=== PATIENT | female | born 1990 | race Hispanic/Latino ===

== ENCOUNTER 2021-01-14 08:14 | Emergency (ER) | payer OTHER ==
[~2021-01-14] VITALS: Ht 170.2 cm; Wt 75.0 kg
[2021-01-14] MEDS ORDERED: MULTTAB20 PO (08:29)
[2021-01-14] MEDS ORDERED: ACET325C5 PO (08:29)
[2021-01-14] MEDS: ONDANSETRON 4MG/2ML VIAL IV ONE (08:45)
[2021-01-14] MEDS: ACETAMINOPHEN 325 MG TAB PO ONE (09:05)
[2021-01-14] MEDS: NS 1,000 ML IV ONE (09:05)
[2021-01-14 09:20] LABS: BASO % 0.2 % (0.0-1.0); HEMATOCRIT 35.7 % (36.0-47.0); HEMOGLOBIN 12.2 g/dl (12.0-15.5); LYMPH # 0.9 10^3/uL (1.5-5.0); LYMPH % 8.3 % (24.0-44.0); MEAN CORPUSCULAR HEMOGLOBIN 27.1 pg (27.0-33.0); MEAN CORPUSCULAR HGB CONC 34.2 g/dl (32.0-36.5); MEAN CORPUSCULAR VOLUME 79.2 fl (80.0-96.0); MONO # 0.4 10^3/uL (0.0-0.8); NEUTROPHILS # 9.6 10^3/uL (1.5-8.5); NEUTROPHILS % 87.1 % (36.0-66.0); PLATELET COUNT, AUTOMATED 197 10^3/uL (150-450); RED BLOOD COUNT 4.51 10^6/uL (4.00-5.40)
[2021-01-14 09:43] LABS: ALBUMIN 3.6 GM/DL (3.2-5.2); ALT/SGPT 14 U/L (12-78); AMYLASE 43 U/L (25-115); BILIRUBIN,DIRECT < 0.1 MG/DL (0.0-0.2); BILIRUBIN,TOTAL 0.4 MG/DL (0.2-1.0); BLOOD UREA NITROGEN 9 MG/DL (7-18); CALCIUM LEVEL 9.1 MG/DL (8.5-10.1); CARBON DIOXIDE LEVEL 21 MEQ/L (21-32); CHLORIDE LEVEL 105 MEQ/L (98-107); CREATININE FOR GFR 0.99 MG/DL (0.55-1.30); GLOMERULAR FILTRATION RATE > 60.0 (>60); GLUCOSE, FASTING 115 MG/DL (70-100); LIPASE 85 U/L (73-393); POTASSIUM SERUM 3.7 MEQ/L (3.5-5.1); SODIUM LEVEL 135 MEQ/L (136-145)
--- NOTE | 2021-01-14 09:59 | REP ---
INDICATION: ruq, right flank pain 16 weeks gestation COMPARISON: None. TECHNIQUE: Real time em scale ultrasound examination using curved array transducer. Color Doppler evaluation of the renal vasculature. FINDINGS: Liver is normal in contour, size, and echogenicity without focal hepatic lesions identified. Pancreas is incompletely evaluated due to interposed bowel gas. The gallbladder demonstrates multiple small gallstones without obvious gallbladder wall thickening or pericholecystic fluid. Common bile duct is dilated to 7 mm. Right kidney and visualized right ureter demonstrate moderate hydroureteronephrosis with normal ureteral jet identified in the bladder. No ascites in the visualized right upper quadrant. noted ( heart rate equals 156 BPM). IMPRESSION: 1. Cholelithiasis with common bile duct upper limits of normal at 7 mm. Correlation is required as early acute cholecystitis and choledocholith cannot definitively be excluded. 2. Presumed induced right hydroureteronephrosis. <Electronically signed by Pepito Wynne > 01/14/21 0956
[2021-01-14 11:50] VITALS: BP 97/63
== END 2021-01-14 11:56 | disposition home or self-care (01) ==
LOC: M ED 08:14
DX: O99.612 Diseases of the digestive system complicating pregnancy, second trimester (principal); K80.70 Calculus of gallbladder and bile duct without cholecystitis without obstruction; Z3A.16 16 weeks gestation of pregnancy

== ENCOUNTER 2021-06-14 04:16 | Inpatient (IN) | payer OTHER ==
[2021-06-14] VITALS (19 sets, daily range): BP systolic 114–161; BP diastolic 55–94
[~2021-06-14] VITALS: Ht 170.2 cm; Wt 90.4 kg
[~2021-06-14 04:16] MED LIST: ACET325C5 PO; MULTTAB20 PO
[2021-06-14] MEDS ORDERED: LACTATED RINGER'S 1000 ML IV STA (06:39)
[2021-06-14] MEDS ORDERED: LR 1,000 ML IV SCH (06:40)
[2021-06-14] MEDS ORDERED: OXYTOCIN DRIP 30 UNITS in IV 1 EA IV PRN ×4 (06:40)
[2021-06-14] MEDS ORDERED: LIDOCAINE 1% MDV 20ML VIAL INFIL PRN (06:40)
[2021-06-14] MEDS ORDERED: METHYLERGONOVINE MALEATE 0.2 MG/ML VIAL (J2210) IM PRN (06:40)
--- NOTE | 2021-06-14 07:03 | HPEPDOC ---
Obstetrical History & Physical General Date of Admission Jun 14, 2021 at 06:41 History of Present Illness Presented to L&D triage with complaints of contractions since 0130 this am. Also with some spotting. Initial SVE at 0450 was 5/75/-2 at 0450, however with ctx every 8 min. Pt lives 30 min away so decision made to keep in triage and re- assess after 1-2hrs. Pt continued to contract with increasing frequency and intensity. Pt breathing through contractions. Good movement. No LOF. Chief Complaint: Contractions, term Dating Final EDC: Jun 26, 2021 Final EDC for Daily Update: Jun 26, 2021 Final EDC by: LMP LMP: Sep 19, 2020 Antepartum Course Diagnos(e)s 1. Anemia of 2. Gallstones 3. Asthma 4. Overweight, excessive wt gain Height (inches): 67 Pre- weight (lbs.): 164 Admission Weight (lbs.): 196 Change in Weight (lbs.): 32 Past Medical History Past Obstetrical History : Past Obstetrical History: Multigravida (2018 37wks 7#3oz. 2010 SAB with D&C 9wks) Past Medical History Medical History Asthma Hx abnormal PAP 2008 Gallstones Surgical History: Tonsilectomy, [place] teeth, Other (D&C) Family History Family History MGM: mitral valve syndrome, ovarian CA PGM: DM PGF: Esophageal CA Social History Marital Status: Family situation: Spouse/partner home Psychosocial History: No pertinent psych hx * Smoker: non-smoker Alcohol: Denies Drugs: denies Abuse Violence Screening Have you been hit/kicked/slapp: No Have you been sexually assault: No Imunizations Tdap status: current Allergies Coded Allergies: No Known Allergies (Unverified , 01/14/21) Medications Scheduled No122/Iron/Folic Acid ( Multi Tablet) 1 Each Tablet, 1 TAB PO DAILY Miscellaneous Medications Acetaminophen (Tylenol) 325 Mg Capsule, 325 MG PO Physical Examination Physical Examination Exam: General: Well-appearing, in no acute distress. Uncomfortable with contractions. PSYCH: Well groomed. Appropriate affect, normal mood. Conversed easily. Neuro: Oriented to time, place, and person. RESP: Lungs clear to auscultation bilaterally without wheezes, rales or rhonchi. Unlabored breathing. CV: Normal RRR, no murmur, c/w normal . No edema to bilateral upper and lower extremities. Negative calf tenderness. ABD: Gravid. Soft, non-tender. BS normal x4 quad. Uterus non-tender. MSK: Normal mvmt all extremities. Steady gait. Luna from a seated position without assistance. Genitalia: External Genitalia showed no abnormalities, without lesions; No vaginal discharge was observed. No unusual odors. Obstetrical: Clinical Pelvimetry: Pelvis adequate, untested. [proven to 7#3oz] FHR: 130 rate, moderate variability, accelerations present, no decelerations. Contractions every 4-5 min. VTX by Tim EFW: 3200gm by Tim SVE: , anterior/soft at 0640. Corporate Development Officer present for exam: L&D RN Vital Signs/I&O Vital Signs Date Time Temp Pulse Resp B/P (MAP) Pulse Ox O2 Delivery O2 Flow Rate FiO2 06/14/21 04:33 97.7 76 16 131/83 (99) Laboratory Data 24H LABS Laboratory Tests 2 06/14/21 05:30: CBC/BMP Pertinent Laboratoy Data Blood Type: O+ RBC Antibody Screen: Negative HIV: Negative Hepatitis B: Negative Rapid Plasma Reagin: Nonreactive Rubella: Immune Varicella: Immune Chlamydia/Gonorrhea: Negative Group B Streptococcus: Negative Quad Screen Test: Negative Cystic Fibrosis: Negative Glucose Tolerance Test: 93 Anatomy Ultrasound Ultrasound Date: Mar 13, 2021 Placenta Location: Posterior Normal Anatomy: Yes Estimated Weight (grams): 327 Assessment/Plan Assessment 30yo at 38+2 wks gestation presents to L&D for contractions and labor at term O positive/GBS negative/RI/ VSS Benign physical exam FHR Cat 1 tracing VTX by PAXTON DumontW 3200gm SVE: Plan PLAN: Admit, labs, IV, consent completed Address pain needs as the arise, patient unsure about epidural. Considering unmedicated again. May do hydrotherapy if she desires. May do intermittent EFM Expectant management at this time. Anticipate Consult physician service as needed Labor and Delivery Counseling Reviewed with patient the following with the patient in regards to vaginal delivery (Deliver infant through the vaginal canal): The purpose of the procedure is to deliver a baby. There may be maternal risks involved with vaginal delivery to include but not limited to: -Use of the medications to induce or augment labor with the risks of uterine rupture, infection, heart rate abnormalities, hemorrhage, and/or need for emergency delivery. -Artificial rupture of the amniotic sac with the risk of cord prolapse -Internal monitors with the associate risks of infection or fever -Infection, which is fever during the labor process -IV pain management, anesthesia as indicated and associated risks with those medications -Vaginal lacerations and repair, episiotomy and repair when needed -Injury to the baby or mother at the time of delivery, -Maternal organ damage, maternal or -Prolonged hospitalized -Possible painful intercourse, chronic pelvic pain In addition to these maternal risks, there may be other possible risks involved in this procedure including, but not limited to: bleeding with the possible need for blood transfusion. Risks of blood transfusion can include but are not ho ited to: possible transfusion reaction, virus transmission. Patient consents to blood transfusion if necessary. The likelihood of a successful outcome for this procedure is: Good Reviewed with patient the generally recognized and accepted practical alter natives to this procedure and the accompanying risks are: -Possible emergent Section with its risk of damage to internal organs and necessary repairs, laceration to the baby and necessary repairs -Possible operative vaginal delivery to include forceps or vacuum assist, resulting in: maternal tissue damage, maternal urinary or bowel incontinence, baby bruising, hematoma, scalp swelling, scalp laceration, skull fracture, facial paralysis and its repair Reviewed with patient the practice of medicine is not an exact science and that no guarantees can be made to the patient concerning the results of this procedure, nor guarantees to the effect this procedure will have on underlying medical issues. Reviewed with patient that during the course of labor, it may be necessary or appropriate to perform additional procedure(s) which were unforeseen or not known to be needed at the time of admission. Ms. Egan appears to understand these risks and elects to proceed with admission today. NUSRAT MAJANO CNM Jun 14, 2021 07:03
[2021-06-14 07:04] LABS: HEMATOCRIT 32.2 % (36.0-47.0); HEMOGLOBIN 9.9 g/dl (12.0-15.5); MEAN CORPUSCULAR HEMOGLOBIN 23.6 pg (27.0-33.0); MEAN CORPUSCULAR HGB CONC 30.7 g/dl (32.0-36.5); MEAN CORPUSCULAR VOLUME 76.8 fl (80.0-96.0); PLATELET COUNT, AUTOMATED 152 10^3/uL (150-450); RED BLOOD COUNT 4.19 10^6/uL (4.00-5.40); WHITE BLOOD COUNT 6.6 10^3/uL (4.0-10.0)
[2021-06-14] MEDS ORDERED: FENTANYL 2MCG/ML ROPIVACAINE 0.2% IN 0.9% NACL 100ML IVBAG As Ordered ONE (07:20)
[2021-06-14] MEDS ORDERED: EPIDURAL/PCA KEYS XX PRN (08:25)
[2021-06-14] MEDS ORDERED: diphenhydrAMINE 50MG/ML VIAL (J1200) IV PRN (08:25)
[2021-06-14] MEDS ORDERED: ONDANSETRON 4MG/2ML VIAL IV PRN (08:25)
[2021-06-14] MEDS ORDERED: FENTANYL/ROPIVACAINE/NACL BAG 100 ML EPIDURAL SCH (08:25)
[2021-06-14] MEDS ORDERED: ePHEDrine SULFATE 25 MG/5 ML(5MG/ML) SYRINGE IV PRN (08:25)
[2021-06-14] MEDS ORDERED: EPIDURAL COMMENT XX SCH (08:25)
[2021-06-14] MEDS ORDERED: LACTATED RINGER'S 1000 ML IV PRN (08:25)
[2021-06-14] MEDS ORDERED: NALOXONE INJ 0.4MG/1ML VIAL (J2310 PER 1MG) IV PRN (08:25)
[2021-06-14] MEDS ORDERED: REFRIGERATOR IV KEYS XX PRN (08:25)
[2021-06-14] MEDS ORDERED: IBUPROFEN 600MG TAB PO PRN (08:30)
[2021-06-14] MEDS ORDERED: DOCUSATE SODIUM 100MG CAPSULE PO PRN (08:30)
[2021-06-14] MEDS ORDERED: IBUPROFEN 800 MG TAB PO PRN (08:30)
[2021-06-14] MEDS ORDERED: ACETAMINOPHEN TAB 650MG DOSE (2X325MG) PO PRN (08:30)
--- NOTE | 2021-06-14 09:18 | DNPDOC ---
[facility] Delivery Note Delivery Note Date of Delivery: 14 Jun 2021 @ 0840 hours Pre-Procedure Diagnosis: 1. 30 year old G3 P 1 at 38+2 weeks gestation 2. O positive 3. Anemia of 4. Gallstones 5. Asthma 6. Overweight, excessive wt gain Post-Procedure Diagnosis: 1. Normal spontaneous vaginal delivery, term up to 40 weeks gestation 2. Nuchal cord complicating delivery, without compression Procedure: Spontaneous vaginal delivery Delivery Provider: MAJ Fanny Duarte CNM Anesthesia: Epidural Estimated Blood Loss: 200 ml Findings: Delivered viable female weighing 3150gm (6#15oz), Score 8/9. Complications: None Delivery Summary: Patient is a 30 year old 3 now para 2 who was admitted to labor and delivery for labor. She progressed to C/C/+3 without need for augmentation. Reassuring FHR tracing throughout pushing. Good directed pushing efforts delivered infant OA with shoulders delivering transverse. Nuchal cord noted, delivered through cord. Infant to maternal abdomen for drying, stimulation and assessment by nursing staff. Cord clamped x2 and cut by FOB following cessation of pulse. Cord blood obtained for typing due to maternal blood type. Placenta delivered with gentle cord traction, in Román mechanism, appears complete and intact with 3VC. [place] placenta. Fundus firm with minimal bleeding. Inspection revealed small introitus abraision, hemostatic and approximated. No sutures needed. Sponge, needle, instrument count correct following delivery. Vaginal sweep confirmed nothing foreign remaining in vagina. Patient and stable and bonding in skin to skin when I left. Desires to breast feed and use Nexplanon for control. I delivered the , completed the repair, and completed the documentation personally. -ELIE Polk ADINA M. CNM Jun 14, 2021 09:18
[2021-06-14] MEDS ORDERED: OXYTOCIN 30 UNITS IN 0.9% NaCl 500ML IV BAG (J2590) As Ordered ONE (09:33)
[2021-06-14] MEDS: PRENATAL VITAMINS CHEWABLE TABLET PO SCH (09:34)
[2021-06-14] MEDS: ACETAMINOPHEN 500 MG TAB PO PRN (17:41)
[2021-06-15] MEDS: ACETAMINOPHEN 500 MG TAB PO PRN (05:07)
--- NOTE | 2021-06-15 05:24 | IPNPDOC ---
Progress Note Date of Service: Jun 15, 2021 Day#: 1 Progress Note Ms. Egan is a 30yo PPD1 s/p , 3150gm (6#15oz), Score 8/9. She has been ambulating, voiding spontaneously without issue and tolerating regular diet. Breast feeding without issue. Reports lochia is less than a normal period. Patient is ambulating well. Reports some cramping with . Denies any pain. Voiding and passing flatus without difficulty. APC 1. Anemia of 2. Gallstones 3. Asthma 4. Overweight, excessive wt gain OBJECTIVE: VITAL SIGNS: Within normal limits, afebrile. Alert and oriented times three. No increased wob. Non-tachy. Abdomen: Fundus firm at U-2. Soft, NTTP. [Minimal] lochia per pt ASSESSMENT: Ms. Egan is a 30yo PPD1 s/p , 3150gm (6#15oz), Score 8/9. Vitals within normal limits, afebrile, hemodynamically stable with no evidence of infection. PLAN: 1. Discharge to home today. 2. Tylenol and Motrin for pain. 3. Encourage breast feeding and ambulation. 4. Desires nexplanon for contraception. Reported that she was told she had to wait until 6 weeks . Explained that she can get it as soon as she should like as it does not affect or VTE risk and if she would like it sooner she can call the clinic to schedule. 5. Routine PP visit in 6 weeks in clinic. 6. Discussed return precautions at length and activity limitations (pelvic rest). VS, I&O, 24H, [place] Vital Signs/I&O Vital Signs Date Time Temp Pulse Resp B/P (MAP) Pulse Ox O2 Delivery O2 Flow Rate FiO2 06/14/21 18:05 98.5 73 18 116/69 (85) 97 Room Air I&O- Last 24 Hours up to 6 AM 06/15/21 06:00 Intake Total 2371 ml Output Total 200 ml Balance 2171 ml Laboratory Data 24H LABS Laboratory Tests 2 06/14/21 05:30: Nucleated Red Blood Cells % (auto) 0.0 06/14/21 06:51: Serology Scanned Report Hepatitis B Testing CBC/BMP Laboratory Tests 06/14/21 05:30 KAYLENE GONSALES DO Jun 15, 2021 05:24
--- NOTE | 2021-06-15 05:25 | OBDS ---
[facility] Obstetrical Discharge Sum. A/P, Post Course List any complications Ms. Egan is a 30yo who had an uncomplicated vaginal delivery, 3150gm (6#15oz), Score 8/9. She has been ambulating, voiding spontaneously without issue and tolerating regular diet. Breast feeding without issue. Reports lochia is less than a normal period. Patient is ambulating well. Reports some cramping with . Denies any pain. Voiding and passing flatus without difficulty. Vitals within normal limits, afebrile, hemodynamically stable with no evidence of infection. APC 1. Anemia of 2. Gallstones 3. Asthma 4. Overweight, excessive wt gain PLAN: 1. Discharge to home today. 2. Tylenol and Motrin for pain. 3. Encourage breast feeding and ambulation. 4. Desires nexplanon for contraception. Reported that she was told she had to wait until 6 weeks . Explained that she can get it as soon as she should like as it does not affect or VTE risk and if she would like it sooner she can call the clinic to schedule. 5. Routine visit in 6 weeks in clinic. 6. Discussed return precautions at length and activity limitations (pelvic rest). KAYLENE GONSALES DO Jun 15, 2021 05:25
[2021-06-15 06:00] VITALS: BP 109/57
[2021-06-15] MEDS: PRENATAL VITAMINS CHEWABLE TABLET PO SCH (08:17)
[2021-06-15] MEDS ORDERED: INFLUENZA QUADRIVALENT PF VACCINE 0.5ML SYRINGE IM ONE (09:00)
== END 2021-06-15 11:27 | disposition home or self-care (01) | DRG 807 ==
LOC: M LDO 04:16 → M LDI 06:41 → M OBS 13:55
PROVIDERS: ADMIT Advanced Practice Midwife; ATTEND Advanced Practice Midwife
PROC: 10E0XZZ Delivery of Products of Conception, External Approach (ICD-10-PCS; principal; 2021-06-14)
DX: O69.81X0 Labor and delivery complicated by cord around neck, without compression, not applicable or unspecified (principal); Z37.0 Single live birth; Z3A.38 38 weeks gestation of pregnancy; D64.9 Anemia, unspecified; O99.02 Anemia complicating childbirth; O26.00 Excessive weight gain in pregnancy, unspecified trimester; K80.20 Calculus of gallbladder without cholecystitis without obstruction; O99.62 Diseases of the digestive system complicating childbirth; J45.909 Unspecified asthma, uncomplicated; O99.52 Diseases of the respiratory system complicating childbirth; O43.199 Other malformation of placenta, unspecified trimester

== ENCOUNTER 2022-03-04 08:22 | Inpatient (IN) | payer OTHER ==
[~2022-03-04] VITALS: Ht 170.2 cm; Wt 82.5 kg
[2022-03-04 10:59] LABS: BASO % 0.3 % (0.0-1.0); EOS % 0.5 % (0.0-3.0); HEMATOCRIT 42.4 % (36.0-47.0); HEMOGLOBIN 13.3 g/dl (12.0-15.5); LYMPH # 0.9 10^3/uL (1.5-5.0); LYMPH % 14.2 % (24.0-44.0); MEAN CORPUSCULAR HEMOGLOBIN 24.6 pg (27.0-33.0); MEAN CORPUSCULAR HGB CONC 31.4 g/dl (32.0-36.5); MEAN CORPUSCULAR VOLUME 78.4 fl (80.0-96.0); MONO # 0.4 10^3/uL (0.0-0.8); MONO % 6.6 % (2.0-8.0); NEUTROPHILS # 5.1 10^3/uL (1.5-8.5); NEUTROPHILS % 78.1 % (36.0-66.0); PLATELET COUNT, AUTOMATED 267 10^3/uL (150-450); RED BLOOD COUNT 5.41 10^6/uL (4.00-5.40); WHITE BLOOD COUNT 6.5 10^3/uL (4.0-10.0)
[2022-03-04] MEDS ORDERED: NS 1,000 ML IV ONE (11:00)
[2022-03-04] MEDS ORDERED: KETOROLAC 30 MG/ML 1ML VIAL IV ONE (11:00)
[2022-03-04] MEDS ORDERED: ONDANSETRON 4MG/2ML VIAL IV ONE (11:00)
[2022-03-04 11:21] LABS: ALBUMIN 4.1 GM/DL (3.2-5.2); ALT/SGPT 714 U/L (12-78); BILIRUBIN,TOTAL 4.2 MG/DL (0.2-1.0); BLOOD UREA NITROGEN 8 MG/DL (7-18); CALCIUM LEVEL 9.5 MG/DL (8.5-10.1); CARBON DIOXIDE LEVEL 24 MEQ/L (21-32); CHLORIDE LEVEL 108 MEQ/L (98-107); CREATININE FOR GFR 0.77 MG/DL (0.55-1.30); GLOMERULAR FILTRATION RATE > 60.0 (>60); GLUCOSE, FASTING 95 MG/DL (70-100); LIPASE 154 U/L (73-393); POTASSIUM SERUM 4.2 MEQ/L (3.5-5.1); SODIUM LEVEL 139 MEQ/L (136-145); TOTAL PROTEIN 7.9 GM/DL (6.4-8.2)
[2022-03-04 11:24] LABS: HCG, SERUM QUALITATIVE NEGATIVE (NEGATIVE)
[2022-03-04 13:02] LABS: RSV AMPLIFICATION NEGATIVE (NEGATIVE)
[2022-03-04 16:07] LABS: HEPATITIS B SURFACE ANTIGEN NEGATIVE (NEGATIVE)
[2022-03-04] MEDS ORDERED: VITMTA PO (16:08)
[2022-03-04] MEDS ORDERED: HOME MED LIST COMPLETE! XX SCH (16:10)
[2022-03-04 16:32] LABS: INR 1.05; PROTHROMBIN TIME 14.1 SECONDS (12.7-14.5)
[2022-03-04 16:46] LABS: ACETAMINOPHEN LEVEL < 2.0 UG/ML (10.0-30.0); HEPATITIS B CORE ANTIBODY IGM NEGATIVE (NEGATIVE); HEPATITIS C VIRUS ABY INDEX 0.1 INDEX (<0.8); SALICYLATE LEVEL < 1.7 MG/DL (5.0-30.0)
[2022-03-04] MEDS: LR 1,000 ML IV SCH (17:49)
[2022-03-04 19:48] VITALS: BP 116/70
[2022-03-04] MEDS ORDERED: KETOROLAC 30 MG/ML 1ML VIAL IV PRN (22:30)
[2022-03-04] MEDS: KETOROLAC 30 MG/ML 1ML VIAL IV PRN (22:44)
[2022-03-05] MEDS: LR 1,000 ML IV SCH (02:19)
[2022-03-05 05:49] VITALS: BP 113/69
[2022-03-05 06:04] LABS: HEMATOCRIT 38.4 % (36.0-47.0); HEMOGLOBIN 11.9 g/dl (12.0-15.5); MEAN CORPUSCULAR HEMOGLOBIN 24.4 pg (27.0-33.0); MEAN CORPUSCULAR VOLUME 78.9 fl (80.0-96.0); PLATELET COUNT, AUTOMATED 204 10^3/uL (150-450); RED BLOOD COUNT 4.87 10^6/uL (4.00-5.40); WHITE BLOOD COUNT 4.9 10^3/uL (4.0-10.0)
[2022-03-05 06:12] LABS: INR 0.97; PROTHROMBIN TIME 13.3 SECONDS (12.7-14.5)
[2022-03-05 06:43] LABS: ALBUMIN 3.3 GM/DL (3.2-5.2); ALT/SGPT 444 U/L (12-78); BLOOD UREA NITROGEN 5 MG/DL (7-18); CALCIUM LEVEL 8.2 MG/DL (8.5-10.1); CARBON DIOXIDE LEVEL 24 MEQ/L (21-32); CHLORIDE LEVEL 111 MEQ/L (98-107); CREATININE FOR GFR 0.63 MG/DL (0.55-1.30); GLOMERULAR FILTRATION RATE > 60.0 (>60); GLUCOSE, FASTING 85 MG/DL (70-100); POTASSIUM SERUM 4.2 MEQ/L (3.5-5.1); SODIUM LEVEL 140 MEQ/L (136-145); TOTAL PROTEIN 6.4 GM/DL (6.4-8.2)
[2022-03-05] MEDS: ENOXAPARIN 40MG/0.4ML SYRINGE (J1650 PER 10MG) SC SCH (08:07)
[2022-03-05] MEDS ORDERED: MULTIVITAMINS/MINERALS THERAP 1 TAB PO SCH (09:00)
[2022-03-05] MEDS: KETOROLAC 30 MG/ML 1ML VIAL IV PRN (13:25)
[2022-03-05 14:00] VITALS: BP 113/68
[2022-03-05 22:00] VITALS: BP 111/67
[2022-03-06 06:00] VITALS: BP 108/64
[2022-03-06 06:11] LABS: HEMOGLOBIN 11.8 g/dl (12.0-15.5); MEAN CORPUSCULAR HEMOGLOBIN 24.1 pg (27.0-33.0); MEAN CORPUSCULAR HGB CONC 31.1 g/dl (32.0-36.5); MEAN CORPUSCULAR VOLUME 77.7 fl (80.0-96.0); PLATELET COUNT, AUTOMATED 200 10^3/uL (150-450); RED BLOOD COUNT 4.89 10^6/uL (4.00-5.40); WHITE BLOOD COUNT 4.4 10^3/uL (4.0-10.0)
[2022-03-06 06:20] LABS: INR 0.95; PROTHROMBIN TIME 13.1 SECONDS (12.7-14.5)
[2022-03-06 06:35] LABS: ALBUMIN 3.2 GM/DL (3.2-5.2); ALT/SGPT 314 U/L (12-78); BILIRUBIN,TOTAL 3.3 MG/DL (0.2-1.0); BLOOD UREA NITROGEN 5 MG/DL (7-18); CALCIUM LEVEL 9.4 MG/DL (8.5-10.1); CARBON DIOXIDE LEVEL 22 MEQ/L (21-32); CHLORIDE LEVEL 110 MEQ/L (98-107); CREATININE FOR GFR 0.62 MG/DL (0.55-1.30); GLOMERULAR FILTRATION RATE > 60.0 (>60); GLUCOSE, FASTING 89 MG/DL (70-100); MAGNESIUM LEVEL 2.1 MG/DL (1.8-2.4); POTASSIUM SERUM 3.7 MEQ/L (3.5-5.1); SODIUM LEVEL 140 MEQ/L (136-145); TOTAL PROTEIN 7.1 GM/DL (6.4-8.2)
[2022-03-06] MEDS: ENOXAPARIN 40MG/0.4ML SYRINGE (J1650 PER 10MG) SC SCH (09:00)
[2022-03-06] MEDS ORDERED: ONDA4TAB6 PO ×2 (11:32→12:55)
[2022-03-06 14:00] VITALS: BP 108/66
[2022-03-06 19:08] LABS: ANTI-MITOCHONDRIAL ANTIBODY <20.0 Units (0.0-20.0); ANTINUCLEAR ANTIBODIES DIRECT Negative (Negative)
== END 2022-03-06 14:30 | disposition home or self-care (01) | DRG 446 ==
LOC: M ED 08:22 → M ED INP 17:00 → ENRESERV 18:51 → M MSPAV 19:36
PROVIDERS: ADMIT Family Medicine; ATTEND Family Medicine
DX: K80.20 Calculus of gallbladder without cholecystitis without obstruction (principal); R74.01 Elevation of levels of liver transaminase levels

== ENCOUNTER 2023-03-17 14:49 | Emergency (ER) | payer OTHER ==
[~2023-03-17] VITALS: Ht 170.2 cm; Wt 80.0 kg
[~2023-03-17 14:49] MED LIST changes: +ONDA4TAB6 PO; +VITMTA PO
[2023-03-17 14:50] VITALS: BP 139/82; TEMP 98.3; O2SAT 97
[2023-03-17] MEDS ORDERED: IBUP-1114 PO (15:23)
[2023-03-17] MEDS ORDERED: ETON68IM SC (15:23)
[2023-03-17] MEDS ORDERED: LIDOCAINE 2% MDV 20ML VIAL SC ONE (15:35)
[2023-03-20] MEDS ORDERED: BACT800T5 PO (09:32)
== END 2023-03-17 16:11 | disposition home or self-care (01) ==
LOC: M ED 14:49
DX: L02.211 Cutaneous abscess of abdominal wall (principal); Z79.1 Long term (current) use of non-steroidal anti-inflammatories (NSAID); Z79.899 Other long term (current) drug therapy